=== PATIENT | male | born 1955 | race Caucasian/White ===

== ENCOUNTER 2018-06-11 09:32 | Emergency (ER) | payer OTHER ==
[2018-06-11] MEDS: ACETAMINOPHEN 325 MG TAB PO (10:28)
== END 2018-06-11 11:46 | disposition home or self-care (01) ==
LOC: FTE 09:32
DX: M54.9 Dorsalgia, unspecified (principal); I10 Essential (primary) hypertension; M25.511 Pain in right shoulder
CPT/HCPCS: 99282